=== PATIENT | male | born 1950 | race Caucasian/White ===

== ENCOUNTER 2017-12-22 20:19 | Inpatient (IN) | payer MEDICARE, OTHER ==
[2017-12-22 20:39] VITALS: BMI 24.9
[2017-12-22] MEDS ORDERED: Sodium Chloride 0.9% 1,000 ML IV STA (20:59)
[2017-12-22 21:17] LABS: BASO # 0.02 K/mm3 (0.0-2.0); BASO % 0.2 % (0.0-3.0); EOS # 0.2 (0.0-0.7); EOS % 1.5 % (1.5-5.0); GRAN # 6.6 (1.4-6.5); GRAN % 64.6 % (50.0-68.0); HEMOGLOBIN 16.2 g/dL (14.0-18.0); LYMPH # 2.8 (1.2-3.4); LYMPH % 27.4 % (22.0-35.0); MEAN CELL VOLUME 82.9 fl (80.0-105.0); MEAN CORPUSCULAR HEMOGLOBIN 28.8 pg (25.0-35.0); MEAN CORPUSCULAR HGB CONC 34.8 g/dl (31.0-37.0); MEAN PLATELET VOLUME 8.8 fl (7.0-11.0); MONO # 0.6 (0.1-0.6); MONO % 6.3 % (1.0-6.0); RBC 5.62 10^6/uL (3.5-6.1); RED CELL DISTRIBUTION WIDTH 13.5 % (11.5-14.5); WHITE BLOOD COUNT 10.2 10^3/ul (4.5-11.0)
--- NOTE | 2017-12-22 21:17 | ED PDOC ---
Arrival/HPI - General Chief Complaint: Medical Clearance Time Seen by Provider: 12/22/17 20:21 - History of Present Illness Narrative History of Present Illness (Text): 12/22/17 21:14 Patient is a 67 y/o M presenting with rectal bleeding. He reports that he felt the urge to have a bowel movement just prior to arrival and then had tyler blood per rectum. Reports that this happened 2 additional times. Denies abdominal pain. Reports that he had a colonoscopy 1 year ago that was completely negative. Denies fever, leg pain, back pain. Denies recent antibiotic use. PMD: Dr. Muhammad Past Medical History - Infectious Disease Hx of Infectious Diseases: None - Cardiac Hx Cardiac Disorders: Yes Hx Hypertension: Yes - Pulmonary Hx Respiratory Disorders: No - Neurological Hx Neurological Disorder: No - HEENT Hx HEENT Disorder: No - Renal Hx Renal Disorder: No - Endocrine/Metabolic Hx Endocrine Disorders: Yes Hx Diabetes Mellitus Type 2: Yes - Hematological/Oncological Hx Blood Disorders: No - Integumentary Hx Dermatological Disorder: No - Musculoskeletal/Rheumatological Hx Musculoskeletal Disorders: No - Gastrointestinal Hx Gastrointestinal Disorders: No - Genitourinary/Gynecological Hx Genitourinary Disorders: No - Psychiatric Hx Psychophysiologic Disorder: No Hx Substance Use: No - Anesthesia Hx Anesthesia Reactions: No (NEVER HAD BEFORE) - Suicidal Assessment Feels Threatened In Home Enviroment: No Family/Social History Family/Social History: No Known Family HX Smoking Status: Never Smoked Hx Alcohol Use: No (RED WINE ON OCCASION) Hx Substance Use: No Allergies/Home Meds Allergies/Adverse Reactions: Allergies No Known Allergies Allergy (Verified 12/22/17 21:08) Home Medications: Home Meds Medication Instructions Recorded Confirmed Sitagliptin Phos/Metformin HCl 1 each PO BID 09/16/16 12/22/17 [Janumet 50-1,000 mg Tablet] amLODIPine [Norvasc] 5 mg PO DAILY 09/16/16 12/22/17 Review of Systems - Physician Review All systems were reviewed & negative as marked: Yes - Review of Systems Constitutional: absent: Fevers Respiratory: absent: SOB, Cough, Sputum, Wheezing Cardiovascular: absent: Chest Pain, Palpitations, Edema, Calf Pain, TOM, Orthopnea, Syncope Gastrointestinal: Stool Changes (tyler blood per rectum). absent: Abdominal Pain, Constipation, Nausea, Vomiting Genitourinary Male: absent: Dysuria, Frequency, Hematuria Skin: absent: Rash Neurological: absent: Headache, Dizziness Physical Exam Vital Signs Temp Pulse Resp BP Pulse Ox 12/22/17 23:02 98.1 F 87 17 141/80 100 12/22/17 20:55 97.8 F 107 H 19 167/95 H 100 Temperature: Afebrile Blood Pressure: Normal Pulse: Tachycardic Respiratory Rate: Normal Appearance: Positive for: Well-Appearing, Non-Toxic, Comfortable Pain Distress: None Mental Status: Positive for: Alert and Oriented X 3 - Systems Exam Head: Present: Atraumatic, Normocephalic Pupils: Present: PERRL Extroacular Muscles: Present: EOMI Conjunctiva: Present: Normal Mouth: Present: Moist Mucous Membranes Neck: Present: Normal Range of Motion Respiratory/Chest: Present: Clear to Auscultation, Good Air Exchange. No: Respiratory Distress, Accessory Muscle Use Cardiovascular: Present: Normal S1, S2, Tachycardic. No: Murmurs Abdomen: No: Tenderness, Distention, Rebound, Guarding Rectal: Present: Occult Blood, Gross Blood, Fissures (small posterior linear fissure) Upper Extremity: Present: Normal Inspection Lower Extremity: Present: Normal Inspection Neurological: Present: GCS=15, CN II-XII Intact, Motor Func Grossly Intact, Normal Sensory Function Skin: Present: Warm, Dry. No: Rashes Psychiatric: Present: Alert, Oriented x 3 Medical Decision Making ED Course and Treatment: 12/22/17 22:20 Patient has gross blood per rectum. Tachycardic on arrival. Episodes were just prior to arrival. Hgb WNL, but due to onset of symptoms, recent negative colonoscopy and presenting tachycardia, will need observation for serial hemoglobin - Lab Interpretations Lab Results: 12/23/17 03:00 12/23/17 03:00 Lab Results 12/23/17 07:25: POC Glucose (mg/dL) 160 H 12/23/17 03:00: Sodium 135, Potassium 4.2, Chloride 102, Carbon Dioxide 26, Anion Gap 11, BUN 19, Creatinine 1.0, Est GFR ( Amer) > 60, Est GFR (Non- Af Amer) > 60, Random Glucose 230 H, Calcium 8.1 L, Total Bilirubin 0.4, AST 28 , ALT 48, Alkaline Phosphatase 55, Total Protein 5.2 L, Albumin 2.9 L, Globulin 2.3, Albumin/Globulin Ratio 1.3 12/23/17 03:00: PT 12.5, INR 1.09 H, APTT 27.1 12/23/17 03:00: WBC 5.3 D, RBC 4.11, Hgb 11.6 L D, Hct 33.8 L, MCV 82.2, MCH 28.2, MCHC 34.3, RDW 13.6, Plt Count 147, MPV 8.4, Gran % 63.1, Lymph % (Auto) 26.1, Summers % (Auto) 9.5 H, Eos % (Auto) 1.1 L, Baso % (Auto) 0.2, Gran # 3.33, Lymph # (Auto) 1.4, Summers # (Auto) 0.5, Eos # (Auto) 0.1, Baso # (Auto) 0.01 12/23/17 03:00: Blood Type Confirm B POSITIVE 12/22/17 21:11: Blood Type B POSITIVE, Antibody Screen Negative, BBK History Checked No verified bt 12/22/17 21:02: Triglycerides 149, Cholesterol 133, LDL Cholesterol Direct 82, HDL Cholesterol 38 12/22/17 21:02: Sodium 135, Potassium 3.8, Chloride 94 L, Carbon Dioxide 26, Anion Gap 19, BUN 20, Creatinine 0.9, Est GFR ( Amer) > 60, Est GFR (Non- Af Amer) > 60, Random Glucose 291 H, Calcium 9.7, Total Bilirubin 0.9, AST 43, ALT 58 H, Alkaline Phosphatase 127 H, Total Protein 7.6, Albumin 4.5, Globulin 3.1, Albumin/Globulin Ratio 1.5 12/22/17 21:02: PT 11.4, INR 1.00, APTT 30.2 12/22/17 21:02: WBC 10.2 D, RBC 5.62, Hgb 16.2, Hct 46.6, MCV 82.9, MCH 28.8, MCHC 34.8, RDW 13.5, Plt Count 186, MPV 8.8, Gran % 64.6, Lymph % (Auto) 27.4, Summers % (Auto) 6.3 H, Eos % (Auto) 1.5, Baso % (Auto) 0.2, Gran # 6.60 H, Lymph # (Auto) 2.8, Summers # (Auto) 0.6, Eos # (Auto) 0.2, Baso # (Auto) 0.02 - RAD Interpretation Radiology Orders: 12/22/17 21:18 CHEST PORTABLE [RAD] Stat - Medication Orders Current Medication Orders: Amlodipine Besylate (Norvasc) 5 mg PO DAILY [facility] Last Admin: 12/23/17 09:21 Dose: 5 mg MAR Pulse and Blood Pressure Document 12/23/17 09:21 VALDEZ (Rec: 12/23/17 09:22 VALDEZ [id number] Pulse Pulse Rate (60-90) 72 Blood Pressure Blood Pressure (100/60-150/90) 129/78 Sodium Chloride (Sodium Chloride 0.9%) 1,000 mls @ 100 mls/hr IV .Q10H KT Last Admin: 12/22/17 22:44 Dose: 100 mls/hr eMAR Start Stop Document 12/22/17 22:44 IT (Rec: 12/22/17 22:45 IT [id number]) Intravenous Solution Start Date 12/22/17 Start Time 22:44 Insulin Human Regular (Humulin R Med) 0 units SC ACHS [facility] PRN Reason: Protocol Last Admin: 12/23/17 08:05 Dose: Not Given Non-Admin Reason: Patient Refused MAR Blood Glucose Document 12/23/17 08:05 VALDEZ (Rec: 12/23/17 08:06 VALDEZ [id number] Blood Glucose Finger Stick Blood Glucose (70-120) 160 Subcutaneous Administrations Document 12/23/17 08:05 VALDEZ (Rec: 12/23/17 08:06 VALDEZ [id number]) Injection Site MAR Injection Site Right Arm Charges for Administration # of Subcutaneous Administrations 1 Pantoprazole Sodium (Protonix Ec Tab) 40 mg PO 0600 KT Discontinued Medications Sodium Chloride (Sodium Chloride 0.9%) 1,000 mls @ 999 mls/hr IV .Q1H1M STA Stop: 12/22/17 21:59 Last Admin: 12/22/17 21:17 Dose: 999 mls/hr eMAR Start Stop Document 12/22/17 21:17 IT (Rec: 12/22/17 21:17 IT [facility] [id number]) Intravenous Solution Start Date 12/22/17 Start Time 21:17 End Date 12/22/17 End time 22:17 Total Infusion Time 60 Pantoprazole Sodium (Protonix Inj) 40 mg IVP Q12 KT Last Admin: 12/22/17 22:44 Dose: 40 mg IVP Administration Document 12/22/17 22:44 IT (Rec: 12/22/17 22:44 IT [id number]) Charges for Administration # of IVP Administrations 1 Disposition/Present on Arrival - Present on Arrival Any Indicators Present on Arrival: No History of DVT/PE: No History of Uncontrolled Diabetes: No Urinary Catheter: No History of Decub. Ulcer: No History Surgical Site Infection Following: None - Disposition Have Diagnosis and Disposition been Completed?: Yes Diagnosis: Rectal bleeding Disposition: HOSPITALIZED Disposition Time: 22:21 Patient Plan: Observation Patient Problems: Current Active Problems Problem Status Onset Rectal bleeding Acute Condition: FAIR
[2017-12-22 21:23] LABS: ALB/GLOB RATIO 1.5 (1.1-1.8); ALBUMIN 4.5 g/dL (3.0-4.8); ALT/SGPT 58 U/L (7-56); AST/SGOT 43 U/L (17-59); BLOOD UREA NITROGEN 20 mg/dL (7-21); CALCIUM 9.7 mg/dL (8.4-10.5); GFR AFRICAN-AMERICAN > 60; GFR NON-AFRICAN AMERICAN > 60
[2017-12-22 22:02] LABS: PARTIAL THROMBOPLASTIN TIME 30.2 Seconds (25.1-36.5); PROTHROMBIN TIME 11.4 SECONDS (9.4-12.5)
[2017-12-22] MEDS: Sodium Chloride 0.9% 1,000 ML IV SCH (22:44)
[2017-12-22 22:48] LABS: HDL CHOLESTEROL 38 mg/dL (29-60)
--- NOTE | 2017-12-22 22:55 | CP.PCM.HP ---
History of Present Illness - History of Present Illness History of Present Illness: Janet Chand, PGY1, H&P for Dr Anderson: CC: rectal bleeding 67 year old male with PMH DM2, HTN, HLD, presents for rectal bleeding that started 6 hours TACKER OFF. At 5:30 PM, pt started having a soft formed bowel movement mixed with bright red blood, pt had blood on the toilet tissue when wiped. He then had two more episodes of passing liquid stools, BRBPR, which prompted him to come to ED. He denies previous such episodes. Pt had a prior colonoscopy in 09/2016, which showed diverticulosis in entire colon and non bleeding internal hemorrhoids. Denies fever, chills, nausea, vomiting, hematemesis, weakness, cp, sob, abdominal pain, diarrhea, history of constipation, hematuria, urinary symptoms, leg swelling. Denies heavy NSAID use, recent travel/sick contacts, antibiotic use. No previous EGD. In ED, pt afebrile, tachycardic 107, BP 167/95, saturating well on RA. Hgb stable 16.2. Received 1L NS bolus. Last rectal bleeding episode at 8 PM in ED. 12 point ROS obtained and negative, except as per HPI. 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 Denies alcohol/tobacco/drug use. Home Meds: ASA 81, Norvasc 5 mg daily, Janumet 1 tab PO BID Present on Admission - Present on Admission Any Indicators Present on Admission: No History of DVT/PE: No History of Uncontrolled Diabetes: No Urinary Catheter: No Decubitus Ulcer Present: No Review of Systems - Review of Systems All systems: reviewed and no additional remarkable complaints except Review of Systems: as per HPI Past Patient History - Infectious Disease Hx of Infectious Diseases: None - Past Social History Smoking Status: Never Smoked - CARDIAC Hx Cardiac Disorders: Yes Hx Hypertension: Yes - PULMONARY Hx Respiratory Disorders: No - NEUROLOGICAL Hx Neurological Disorder: No - HEENT Hx HEENT Problems: No - RENAL Hx Chronic Kidney Disease: No - ENDOCRINE/METABOLIC Hx Endocrine Disorders: Yes Hx Diabetes Mellitus Type 2: Yes - HEMATOLOGICAL/ONCOLOGICAL Hx Blood Disorders: No - INTEGUMENTARY Hx Dermatological Problems: No - MUSCULOSKELETAL/RHEUMATOLOGICAL Hx Musculoskeletal Disorders: No - GASTROINTESTINAL Hx Gastrointestinal Disorders: No - GENITOURINARY/GYNECOLOGICAL Hx Genitourinary Disorders: No - PSYCHIATRIC Hx Psychophysiologic Disorder: No Hx Substance Use: No - SURGICAL HISTORY Hx Surgeries: No - ANESTHESIA Hx Anesthesia Reactions: No (NEVER HAD BEFORE) Meds Allergies/Adverse Reactions: Allergies Allergy/AdvReac Type Severity Reaction Status Date / Time No Known Allergies Allergy Verified 12/22/17 21:08 Physical Exam - Constitutional Appears: Non-toxic, No Acute Distress, Older Than Stated Age - Head Exam Head Exam: ATRAUMATIC, NORMOCEPHALIC - Eye Exam Eye Exam: EOMI, PERRL. absent: Conjunctival injection, Nystagmus, Scleral icterus Pupil Exam: NORMAL ACCOMODATION, PERRL. absent: Fixed, Irregular, Miosis, Unequal - ENT Exam ENT Exam: Mucous Membranes Moist - Neck Exam Neck exam: Positive for: Full Rom - Respiratory Exam Respiratory Exam: Clear to Auscultation Bilateral, NORMAL BREATHING PATTERN. absent: Accessory Muscle Use, Chest Wall Tenderness, Decreased Breath Sounds, Rales, Rhonchi, Wheezes, Respiratory Distress, Stridor - Cardiovascular Exam Cardiovascular Exam: Tachycardia, +S1, +S2 - GI/Abdominal Exam GI & Abdominal Exam: Normal Bowel Sounds, Soft. absent: Distended, Guarding, Mass, Organomegaly, Rebound, Rigid, Tenderness - Rectal Exam Rectal Exam: absent: Fecal Impaction Additional comments: + increased anal tone. No hemorrhoids appreciated. No stool in rectal vault. + bright red blood. - Expanded Rectal Exam Expanded Expanded Rectal Exam: absent: Hemorrhoids, Laceration, Mass - Extremities Exam Extremities exam: Positive for: normal inspection. Negative for: calf tenderness, pedal edema - Back Exam Back exam: NORMAL INSPECTION - Neurological Exam Neurological exam: Alert, Oriented x3 - Psychiatric Exam Psychiatric exam: Normal Affect, Normal Mood - Skin Skin Exam: Dry, Normal Color, Warm Results - Vital Signs Recent Vital Signs: Last Vital Signs Temp 97.8 F 12/22/17 20:55 Pulse 107 H 12/22/17 20:55 Resp 19 12/22/17 20:55 BP 167/95 H 12/22/17 20:55 Pulse Ox 100 12/22/17 20:55 - Labs Result Diagrams: 12/22/17 21:02 12/22/17 21:02 Assessment & Plan - Assessment and Plan (Free Text) Assessment: 67 year old male with PMH DM2, HTN, HLD, presents for acute episode of rectal bleeding: Rectal bleedin/2 diverticular vs anal fissure vs internal hemorrhoidal bleeding vs IBD (less likely) - Hgb 16.2 (baseline 16) - Tachycardic 107, NSR, no hypotension, weakness, sob, cp - NPO - IVF @ 100 - GI consult. F/u recs - Type and screen - Protonix - CBC q6h Hx of HTN: - c/w home amlodipine - Cont to monitor Hx of HLD: - lipid panel - no home statin reported Hx of DM2: - ISS - med PPX: Protonix, SCDs (anticoag contraindicated) Discussed with Dr Anderson.
[2017-12-22 22:59] LABS: LDL CHOLESTEROL 82 mg/dL (0-129)
[2017-12-23 03:41] LABS: MEAN CELL VOLUME 82.2 fl (80.0-105.0); MEAN CORPUSCULAR HEMOGLOBIN 28.2 pg (25.0-35.0); MEAN CORPUSCULAR HGB CONC 34.3 g/dl (31.0-37.0); MEAN PLATELET VOLUME 8.4 fl (7.0-11.0); RBC 4.11 10^6/uL (3.5-6.1); RED CELL DISTRIBUTION WIDTH 13.6 % (11.5-14.5); WHITE BLOOD COUNT 5.3 10^3/ul (4.5-11.0)
[2017-12-23 03:45] LABS: HEMOGLOBIN 11.6 g/dL (14.0-18.0); INR 1.09 (0.93-1.08); PARTIAL THROMBOPLASTIN TIME 27.1 Seconds (25.1-36.5); PROTHROMBIN TIME 12.5 SECONDS (9.4-12.5)
[2017-12-23 04:15] LABS: ALB/GLOB RATIO 1.3 (1.1-1.8); ALBUMIN 2.9 g/dL (3.0-4.8); ALT/SGPT 48 U/L (7-56); AST/SGOT 28 U/L (17-59); BLOOD UREA NITROGEN 19 mg/dL (7-21); CALCIUM 8.1 mg/dL (8.4-10.5); GFR AFRICAN-AMERICAN > 60; GFR NON-AFRICAN AMERICAN > 60
[2017-12-23 04:20] LABS: BASO % 0.2 % (0.0-3.0); EOS % 1.1 % (1.5-5.0); GRAN # 3.33 (1.4-6.5); GRAN % 63.1 % (50.0-68.0); LYMPH # 1.4 (1.2-3.4); LYMPH % 26.1 % (22.0-35.0); MONO # 0.5 (0.1-0.6); MONO % 9.5 % (1.0-6.0)
[2017-12-23 04:21] LABS: BASO # 0.01 K/mm3 (0.0-2.0); EOS # 0.1 (0.0-0.7)
--- NOTE | 2017-12-23 07:55 | CP.PCM.CON ---
<Joycelyn Gilliland - Last Filed: 12/23/17 08:56> History of Present Illness - History of Present Illness History of Present Illness: GI Fellow PGY4 Consult Note This is a 67 year old male with PMH DM2, HTN, HLD, presents for rectal bleeding that started yesterday afternoon. Pt reports that he has two bowel movements with bright red blood followed by two more episodes of passing soft stools with dark blood. He denies previous such episodes. Pt had a prior colonoscopy in 2015, which showed diverticulosis in entire colon and non bleeding internal hemorrhoids. Denies fever, chills, nausea, vomiting, hematemesis, weakness, cp, sob, abdominal pain, diarrhea, history of constipation, hematuria, urinary symptoms, leg swelling. Denies heavy NSAID use, recent travel/sick contacts, antibiotic use. Pt denies constipation or straining, reports BM 2-3 daily. No previous EGD. Pt reports having 2 more episode of dark blood per rectum last night in the hospital. ROS: 12 point ROS obtained and negative, except as per HPI. PMH: DM2, HTN, HLD PSH: denies FH: DM, HTN SH: Denies alcohol/tobacco/drug use Past Patient History - Infectious Disease Hx of Infectious Diseases: None - Past Social History Smoking Status: Former Smoker - CARDIAC Hx Cardiac Disorders: Yes Hx Hypertension: Yes - PULMONARY Hx Respiratory Disorders: No - NEUROLOGICAL Hx Neurological Disorder: No - HEENT Hx HEENT Problems: No - RENAL Hx Chronic Kidney Disease: No - ENDOCRINE/METABOLIC Hx Endocrine Disorders: Yes Hx Diabetes Mellitus Type 2: Yes - HEMATOLOGICAL/ONCOLOGICAL Hx Blood Disorders: No - INTEGUMENTARY Hx Dermatological Problems: No - MUSCULOSKELETAL/RHEUMATOLOGICAL Hx Musculoskeletal Disorders: No Hx Falls: No - GASTROINTESTINAL Hx Gastrointestinal Disorders: No - GENITOURINARY/GYNECOLOGICAL Hx Genitourinary Disorders: No - PSYCHIATRIC Hx Psychophysiologic Disorder: No Hx Substance Use: No - SURGICAL HISTORY Hx Surgeries: No - ANESTHESIA Hx Anesthesia Reactions: No (NEVER HAD BEFORE) Meds Allergies/Adverse Reactions: Allergies Allergy/AdvReac Type Severity Reaction Status Date / Time No Known Allergies Allergy Verified 12/22/17 21:08 - Medications Medications: Current Medications Amlodipine Besylate (Norvasc) 5 mg PO DAILY KT Sodium Chloride (Sodium Chloride 0.9%) 1,000 mls @ 100 mls/hr IV .Q10H KT Last Admin: 12/22/17 22:44 Dose: 100 mls/hr Insulin Human Regular (Humulin R Med) 0 units SC ACHS [facility] PRN Reason: Protocol Pantoprazole Sodium (Protonix Inj) 40 mg IVP Q12 [facility] Last Admin: 12/22/17 22:44 Dose: 40 mg Physical Exam - Constitutional Appears: Non-toxic, No Acute Distress - Head Exam Head Exam: ATRAUMATIC, NORMAL INSPECTION, NORMOCEPHALIC - Eye Exam Eye Exam: EOMI, Normal appearance, PERRL Pupil Exam: PERRL - ENT Exam ENT Exam: Mucous Membranes Moist - Neck Exam Neck exam: Positive for: Normal Inspection - Respiratory Exam Respiratory Exam: Clear to Auscultation Bilateral, NORMAL BREATHING PATTERN - Cardiovascular Exam Cardiovascular Exam: REGULAR RHYTHM - GI/Abdominal Exam GI & Abdominal Exam: Normal Bowel Sounds, Soft. absent: Distended, Firm, Guarding, Organomegaly, Tenderness - Rectal Exam Rectal Exam: absent: Black Stool, Hemorrhoids Additional comments: brown stool with tinge of red, no gross hematochezia or melena - Extremities Exam Extremities exam: Positive for: full ROM, normal inspection - Back Exam Back exam: NORMAL INSPECTION - Neurological Exam Neurological exam: Alert, Oriented x3 - Psychiatric Exam Psychiatric exam: Normal Affect, Normal Mood - Skin Skin Exam: Dry, Intact, Normal Color, Warm Results - Vital Signs Recent Vital Signs: Last Vital Signs Temp 98.6 F 12/23/17 01:17 Pulse 88 12/23/17 01:17 Resp 18 12/23/17 01:17 BP 124/75 12/23/17 01:17 Pulse Ox 100 12/22/17 23:02 - Labs Result Diagrams: 12/23/17 08:30 12/23/17 03:00 Labs: Laboratory Results - last 24 hr 12/23/17 12/23/17 12/23/17 03:00 03:00 03:00 WBC 5.3 D RBC 4.11 Hgb 11.6 L D Hct 33.8 L MCV 82.2 MCH 28.2 MCHC 34.3 RDW 13.6 Plt Count 147 MPV 8.4 Gran % 63.1 Lymph % (Auto) 26.1 Mason % (Auto) 9.5 H Eos % (Auto) 1.1 L Baso % (Auto) 0.2 Gran # 3.33 Lymph # (Auto) 1.4 Mason # (Auto) 0.5 Eos # (Auto) 0.1 Baso # (Auto) 0.01 PT 12.5 INR 1.09 H APTT 27.1 Sodium Potassium Chloride Carbon Dioxide Anion Gap BUN Creatinine Est GFR ( Amer) Est GFR (Non-Af Amer) POC Glucose (mg/dL) Random Glucose Calcium Total Bilirubin AST ALT Alkaline Phosphatase Total Protein Albumin Globulin Albumin/Globulin Ratio Blood Type Confirm B POSITIVE 12/23/17 12/23/17 03:00 07:25 WBC RBC Hgb Hct MCV MCH MCHC RDW Plt Count MPV Gran % Lymph % (Auto) Mason % (Auto) Eos % (Auto) Baso % (Auto) Gran # Lymph # (Auto) Mason # (Auto) Eos # (Auto) Baso # (Auto) PT INR APTT Sodium 135 Potassium 4.2 Chloride 102 Carbon Dioxide 26 Anion Gap 11 BUN 19 Creatinine 1.0 Est GFR ( Amer) > 60 Est GFR (Non-Af Amer) > 60 POC Glucose (mg/dL) 160 H Random Glucose 230 H Calcium 8.1 L Total Bilirubin 0.4 AST 28 ALT 48 Alkaline Phosphatase 55 Total Protein 5.2 L Albumin 2.9 L Globulin 2.3 Albumin/Globulin Ratio 1.3 Blood Type Confirm Assessment & Plan - Assessment and Plan (Free Text) Assessment: This is a 67yM presenting with complaints of BRBPR since yesterday. 1. Rectal bleeding-likely diverticular bleed 2. Anemia Plan: -Continue supportive care -IVF hydration -Pt with slowly improving rectal bleeding, likely diverticular bleed with colonoscopy in 2016 showing diverticulosis throughout the colon -Anemia with Hgb 16.2-->11.6, continue to monitor H/H and transfuse if Hgb<7 or symptomatic, currently pt hemodynamically stable -Advance diet to clear liquids -No plan for endoscopic evaluation at this time -Can change to po PPI for GERD, no signs of upper GI bleed -Will continue to follow closely <Sean Peterson - Last Filed: 12/23/17 14:50> Meds - Medications Medications: Current Medications Amlodipine Besylate (Norvasc) 5 mg PO DAILY KT Sodium Chloride (Sodium Chloride 0.9%) 1,000 mls @ 100 mls/hr IV .Q10H KT Last Admin: 12/23/17 12:13 Dose: 100 mls/hr Insulin Human Regular (Humulin R Med) 0 units SC ACHS [facility] PRN Reason: Protocol Last Admin: 12/23/17 12:17 Dose: 3 units Pantoprazole Sodium (Protonix Ec Tab) 40 mg PO 0600 [facility] Results - Vital Signs Recent Vital Signs: Last Vital Signs Temp 98.0 F 12/23/17 07:30 Pulse 72 12/23/17 09:21 Resp 16 12/23/17 07:30 BP 129/78 12/23/17 09:21 Pulse Ox 96 12/23/17 07:30 - Labs Result Diagrams: 12/23/17 08:30 12/23/17 03:00 Labs: Laboratory Results - last 24 hr 12/23/17 12/23/17 08:30 11:37 WBC 4.6 RBC 4.19 Hgb 11.7 L Hct 34.5 L MCV 82.3 MCH 27.9 MCHC 33.9 RDW 13.7 Plt Count 161 MPV 8.5 POC Glucose (mg/dL) 206 H Attending/Attestation - Attestation I have personally seen and examined this patient.: Yes I have fully participated in the care of the patient.: Yes I have reviewed all pertinent clinical information: Yes Notes (Text): 12/23/17 14:46 I have seen and examined patient with GI fellow. Agree with above documentation with the following additions. In brief, this is a 67 year old male with history of DM, HTN, hyperlipidemia who presents to hospital with complaint of rectal bleeding which started yesterday. He reports two dark colored bowel movements mixed with fresh blood in the evening but no repeat bowel movements since. He denies associated abdominal pain, nausea, vomiting, fever/chills, weight loss. He had a colonoscopy in 2016 which showed diverticulosis and internal hemorrhoids. Review of vitals from today are normal. DM / HTN Hyperlipidemia Rectal bleeding - Advance diet as tolerated - H/H stable, continue to monitor. No recurrent bleeding episodes noted in hospital today. - Patient currently hemodynamically stable, if no repeat bleeding noted and patient tolerating diet, from GI perspective ok to discharge home with subsequent outpatient follow up. - Will continue to monitor patient clinical course.
[2017-12-23] MEDS: Insulin Reg-MEDIUM-Coverage SC SCH ×4 (08:05→21:45)
[2017-12-23 08:52] LABS: HEMOGLOBIN 11.7 g/dL (14.0-18.0); MEAN CELL VOLUME 82.3 fl (80.0-105.0); MEAN CORPUSCULAR HEMOGLOBIN 27.9 pg (25.0-35.0); MEAN CORPUSCULAR HGB CONC 33.9 g/dl (31.0-37.0); MEAN PLATELET VOLUME 8.5 fl (7.0-11.0); RBC 4.19 10^6/uL (3.5-6.1); RED CELL DISTRIBUTION WIDTH 13.7 % (11.5-14.5); WHITE BLOOD COUNT 4.6 10^3/ul (4.5-11.0)
--- NOTE | 2017-12-23 09:45 | RAD ---
HISTORY: GI bleed COMPARISON: No prior. FINDINGS: LUNGS: No active pulmonary disease. PLEURA: No significant pleural effusion identified, no pneumothorax apparent. CARDIOVASCULAR: Normal. OSSEOUS STRUCTURES: No significant abnormalities. VISUALIZED UPPER ABDOMEN: Normal. OTHER FINDINGS: None. IMPRESSION: No active disease.
[2017-12-23] MEDS: Sodium Chloride 0.9% 1,000 ML IV SCH (12:13)
[2017-12-23 15:34] LABS: HEMOGLOBIN 10.4 g/dL (14.0-18.0); MEAN CORPUSCULAR HEMOGLOBIN 28.1 pg (25.0-35.0); MEAN CORPUSCULAR HGB CONC 33.9 g/dl (31.0-37.0); MEAN PLATELET VOLUME 8.1 fl (7.0-11.0); RBC 3.7 10^6/uL (3.5-6.1); RED CELL DISTRIBUTION WIDTH 13.7 % (11.5-14.5); WHITE BLOOD COUNT 4.1 10^3/ul (4.5-11.0)
--- NOTE | 2017-12-23 17:36 | CARD ---
APPROVED REPORT EKG Measurement Heart [id number] <Conclusion> Normal sinus rhythm Inferior infarct, age undetermined Abnormal ECG
[2017-12-23 21:14] LABS: HEMOGLOBIN 10.5 g/dL (14.0-18.0); MEAN CORPUSCULAR HEMOGLOBIN 27.9 pg (25.0-35.0); MEAN CORPUSCULAR HGB CONC 33.5 g/dl (31.0-37.0); RBC 3.77 10^6/uL (3.5-6.1); RED CELL DISTRIBUTION WIDTH 13.9 % (11.5-14.5); WHITE BLOOD COUNT 4.4 10^3/ul (4.5-11.0)
[2017-12-24] MEDS: Sodium Chloride 0.9% 1,000 ML IV SCH (05:25)
[2017-12-24] MEDS ORDERED: Pantoprazole 40 mg EC Tab PO SCH (06:00)
--- NOTE | 2017-12-24 07:08 | CP.PCM.PN ---
Subjective - Date & Time of Evaluation Date of Evaluation: 12/24/17 Time of Evaluation: 08:00 - Subjective Subjective: GI Fellow PGY 4 Progress Note Pt seen and evaluated at bedside, pt doing well and tolerating diet. Pt denies any abdominal pain, N/V, F/C. No more rectal bleeding per pt, dark brown stool. ROS: A 12pt ROS was negative except as above. Objective - Vital Signs/Intake and Output Vital Signs (last 24 hours): Temp Pulse Resp BP Pulse Ox 97.9 F 68 20 112/69 98 12/23/17 21:52 12/23/17 21:52 12/23/17 21:52 12/23/17 21:52 12/23/17 21:52 Intake and Output: 12/24/17 12/24/17 06:59 18:59 Intake Total 480 Output Total 700 Balance -220 - Medications Medications: Current Medications Amlodipine Besylate (Norvasc) [address] [facility] Insulin Human Regular (Humulin R Med) 0 units SC ACHS KT PRN Reason: Protocol Last Admin: 12/23/17 21:45 Dose: Not Given Pantoprazole Sodium (Protonix Ec Tab) [address] [facility] Last Admin: 12/24/17 05:25 Dose: Not Given - Labs Labs: 12/23/17 20:55 PT 12.5 SECONDS (9.4-12.5) 12/23/17 03:00 INR 1.09 (0.93-1.08) H 12/23/17 03:00 APTT 27.1 Seconds (25.1-36.5) 12/23/17 03:00 - Constitutional Appears: Non-toxic, No Acute Distress - Head Exam Head Exam: ATRAUMATIC, NORMAL INSPECTION, NORMOCEPHALIC - Eye Exam Eye Exam: EOMI, Normal appearance, PERRL Pupil Exam: PERRL - ENT Exam ENT Exam: Mucous Membranes Moist, Normal Exam - Neck Exam Neck Exam: Normal Inspection - Respiratory Exam Respiratory Exam: Clear to Ausculation Bilateral, NORMAL BREATHING PATTERN - GI/Abdominal Exam GI & Abdominal Exam: Soft, Normal Bowel Sounds - Extremities Exam Extremities Exam: Full ROM, Normal Inspection - Back Exam Back Exam: NORMAL INSPECTION - Neurological Exam Neurological Exam: Alert, Awake, Oriented x3 - Psychiatric Exam Psychiatric exam: Normal Affect, Normal Mood - Skin Skin Exam: Dry, Intact, Normal Color, Warm Assessment and Plan - Assessment and Plan (Free Text) Assessment: This is a 67yM presenting with complaints of BRBPR since yesterday. 1. Rectal bleeding-likely diverticular bleed 2. Anemia Plan: -Continue supportive care -Pt with likely diverticular bleed with colonoscopy in 2016 showing diverticulosis throughout the colon -Anemia Hgb trending down, continue to monitor H/H daily, no need for q6hrs and transfuse if Hgb<7 or symptomatic, currently pt hemodynamically stable -Advance diet -Continue po PPI for GERD -No plan for endoscopic evaluation at this time, follow up as an outpt for colonoscopy -Please call with any questions or concerns
[2017-12-24 07:17] LABS: HEMOGLOBIN 11.5 g/dL (14.0-18.0); MEAN CELL VOLUME 83.4 fl (80.0-105.0); MEAN CORPUSCULAR HEMOGLOBIN 28.1 pg (25.0-35.0); MEAN CORPUSCULAR HGB CONC 33.7 g/dl (31.0-37.0); MEAN PLATELET VOLUME 8.3 fl (7.0-11.0); RBC 4.09 10^6/uL (3.5-6.1); WHITE BLOOD COUNT 5.3 10^3/ul (4.5-11.0)
[2017-12-24 07:26] VITALS: BP 109/62; PULSE 64; RESP 18; TEMP 99.8; O2SAT 97
[2017-12-24 07:27] LABS: INR 1.03 (0.93-1.08); PARTIAL THROMBOPLASTIN TIME 27.8 Seconds (25.1-36.5); PROTHROMBIN TIME 11.9 SECONDS (9.4-12.5)
[2017-12-24 08:03] LABS: ALB/GLOB RATIO 1.3 (1.1-1.8); ALBUMIN 3.4 g/dL (3.0-4.8); ALT/SGPT 47 U/L (7-56); AST/SGOT 38 U/L (17-59); BLOOD UREA NITROGEN 11 mg/dL (7-21); CALCIUM 8.5 mg/dL (8.4-10.5); GFR AFRICAN-AMERICAN > 60; GFR NON-AFRICAN AMERICAN > 60
[2017-12-24] MEDS: Insulin Reg-MEDIUM-Coverage SC SCH (10:28)
--- NOTE | 2017-12-24 11:08 | CP.PCM.DIS ---
<Alexi Rose - Last Filed: 12/24/17 11:53> Provider - Provider Date of Admission: 12/23/17 07:40 Attending physician: Alexei Rawls MD Primary care physician: Pito Muhammad MD Consults: GI: Larsen Time Spent in preparation of Discharge (in minutes): 25 Diagnosis - Discharge Diagnosis (1) Diverticulosis Status: Chronic Priority: Medium (2) Rectal bleeding Status: Resolved Priority: High (3) Anemia Status: Acute Priority: High Hospital Course - Lab Results Lab Results: Most Recent Lab Values WBC 5.3 10^3/ul (4.5-11.0) D 12/24/17 07:00 RBC 4.09 10^6/uL (3.5-6.1) 12/24/17 07:00 Hgb 11.5 g/dL (14.0-18.0) L 12/24/17 07:00 Hct 34.1 % (42.0-52.0) L 12/24/17 07:00 MCV 83.4 fl (80.0-105.0) 12/24/17 07:00 MCH 28.1 pg (25.0-35.0) 12/24/17 07:00 MCHC 33.7 g/dl (31.0-37.0) 12/24/17 07:00 RDW 14.0 % (11.5-14.5) 12/24/17 07:00 Plt Count 132 10^3/uL (120.0-450.0) 12/24/17 07:00 MPV 8.3 fl (7.0-11.0) 12/24/17 07:00 Gran % 63.1 % (50.0-68.0) 12/23/17 03:00 Lymph % (Auto) 26.1 % (22.0-35.0) 12/23/17 03:00 Latimer % (Auto) 9.5 % (1.0-6.0) H 12/23/17 03:00 Eos % (Auto) 1.1 % (1.5-5.0) L 12/23/17 03:00 Baso % (Auto) 0.2 % (0.0-3.0) 12/23/17 03:00 Gran # 3.33 (1.4-6.5) 12/23/17 03:00 Lymph # (Auto) 1.4 (1.2-3.4) 12/23/17 03:00 Latimer # (Auto) 0.5 (0.1-0.6) 12/23/17 03:00 Eos # (Auto) 0.1 (0.0-0.7) 12/23/17 03:00 Baso # (Auto) 0.01 K/mm3 (0.0-2.0) 12/23/17 03:00 PT 11.9 SECONDS (9.4-12.5) 12/24/17 07:00 INR 1.03 (0.93-1.08) 12/24/17 07:00 APTT 27.8 Seconds (25.1-36.5) 12/24/17 07:00 Sodium 140 mmol/L (132-148) 12/24/17 07:00 Potassium 4.0 mmol/L (3.6-5.0) 12/24/17 07:00 Chloride 107 mmol/L (98-107) 12/24/17 07:00 Carbon Dioxide 27 mmol/L (21-33) 12/24/17 07:00 Anion Gap 10 (10-20) 12/24/17 07:00 BUN 11 mg/dL (7-21) 12/24/17 07:00 Creatinine 0.8 mg/dl (0.8-1.5) 12/24/17 07:00 Est GFR ( Amer) > 60 12/24/17 07:00 Est GFR (Non-Af Amer) > 60 12/24/17 07:00 POC Glucose (mg/dL) 312 mg/dL (65-110) H 12/24/17 09:11 Random Glucose 166 mg/dL (70-110) H 12/24/17 07:00 Calcium 8.5 mg/dL (8.4-10.5) 12/24/17 07:00 Total Bilirubin 0.5 mg/dL (0.2-1.3) 12/24/17 07:00 AST 38 U/L (17-59) 12/24/17 07:00 ALT 47 U/L (7-56) 12/24/17 07:00 Alkaline Phosphatase 43 U/L (38-126) 12/24/17 07:00 Total Protein 6.0 g/dL (5.8-8.3) 12/24/17 07:00 Albumin 3.4 g/dL (3.0-4.8) 12/24/17 07:00 Globulin 2.6 gm/dL 12/24/17 07:00 Albumin/Globulin Ratio 1.3 (1.1-1.8) 12/24/17 07:00 Triglycerides 149 mg/dL (35-160) 12/22/17 21:02 Cholesterol 133 mg/dL (130-200) 12/22/17 21:02 LDL Cholesterol Direct 82 mg/dL (0-129) 12/22/17 21: HDL Cholesterol 38 mg/dL (29-60) 12/22/17 21:02 Blood Type B POSITIVE 12/22/17 21:11 Blood Type Confirm B POSITIVE 12/23/17 03:00 Antibody Screen Negative 12/22/17 21:11 BBK History Checked No verified bt 12/22/17 21:11 - Hospital Course Hospital Course: This is a 67 yo [place] M with PMH of DM2, HTN, HLD who presented for 3 acute episodes of rectal bleeding prior to presentation to [facility] [place]. Of note, he had previous undergone colonoscopy at [facility] [place] in Sep 2016, and was noted to have extensive diverticulosis of the colon and internal hemorrhoids at that time. He denied any history of similar GI bleeds, but was admitted for observation given reported bleeding and tachycardia on presentation. While here, he was also seen by GI, who believed that the bleeding was most likely due to the diverticulosis, and did not recommend additional scoping at this time. Patient was transitioned first to a liquid diet, and then to solid food. His Hgb during admission decreased from 16.2 (baseline at time of colonoscopy as well as present on admission) to 11.6 yesterday, and has ranged from 10.4-11.7 since yesterday AM to this morning, but there is likely a dilutional component, as patient was receiving continuous IV fluids since admission (and a 1L bolus on admission), did not have any further bloody bowel movements, and remained normotensive and normocardic since admission. He was ambulated by staff, and was able to walk without any weakness, dizziness, near-syncope, or syncope. He was cleared for discharge to home, and was given a prescription for Colace 100mg daily to prevent constipation in setting of diverticular disease. He was also instructed to follow up with his PMD within 1 week of discharge, and to resume all home medications. Patient expressed understanding and agreement with these instructions, and had no further questions, so he was discharged. Patient seen, reviewed, and discussed with attending, Dr. Rawls. Discharge Exam - Head Exam Head Exam: ATRAUMATIC, NORMAL INSPECTION, NORMOCEPHALIC - Eye Exam Eye Exam: EOMI, Normal appearance. absent: Conjunctival injection, Scleral icterus Pupil Exam: absent: Irregular, Unequal - ENT Exam ENT Exam: Mucous Membranes Moist - Neck Exam Neck exam: Full Rom - Respiratory Exam Respiratory Exam: Clear to PA & Lateral, NORMAL BREATHING PATTERN, UNREMARKABLE. absent: Prolonged Expiratory Phase, Rales, Rhonchi, Wheezes, Respiratory Distress - Cardiovascular Exam Cardiovascular Exam: REGULAR RHYTHM, RRR, +S1, +S2. absent: Bradycardia, Tachycardia, Irregular Rhythm, JVD, +S4 - GI/Abdominal Exam GI & Abdominal Exam: Normal Bowel Sounds, Soft, Unremarkable. absent: Diminished Bowel Sounds, Distended, Firm, Guarding, Hernia, Hyperactive Bowel Sounds, Hypoactive Bowel Sounds, Organomegaly, Rebound, Rigid, Tenderness - Extremities Exam Extremities exam: full ROM, normal inspection - Neurological Exam Neurological exam: Alert, Normal Gait, Oriented x3 - Psychiatric Exam Psychiatric exam: Normal Affect, Normal Mood - Skin Skin Exam: Dry, Intact, Normal Color, Warm Discharge Plan - Discharge Medications Prescriptions: Docusate [Colace] 100 mg PO DAILY #30 cap - Follow Up Plan Condition: FAIR Disposition: HOME/ ROUTINE Instructions: Type 2 Diabetes, High Blood Pressure in Adults, High Fiber Diet, Diverticulosis (DC), Gastrointestinal Bleeding (DC), Bloody Stools, Adult (DC) Additional Instructions: Please follow up with your doctor within 1 week of discharge. Please take Colace once per day to soften your stools, a prescription has been provided. Please avoid foods with excess seeds and popcorn for at least 1 week. Please resume all home medications. If you begin to feel dizzy/lightheaded or weak, stop whatever you are doing and sit down. Please return to the hospital if you experience new or concerning symptoms. Referrals: Chloé Larsen MD [Medical Doctor] - Pito Muhammad MD [Primary Care Provider] - <Alexei Rawls - Last Filed: 12/24/17 13:49> Provider - Provider Date of Admission: 12/23/17 07:40 Attending physician: Alexei Rawls MD Primary care physician: Pito Muhammad MD Time Spent in preparation of Discharge (in minutes): 35 Hospital Course - Lab Results Lab Results: Most Recent Lab Values WBC 5.3 10^3/ul (4.5-11.0) D 12/24/17 07:00 RBC 4.09 10^6/uL (3.5-6.1) 12/24/17 07:00 Hgb 11.5 g/dL (14.0-18.0) L 12/24/17 07:00 Hct 34.1 % (42.0-52.0) L 12/24/17 07:00 MCV 83.4 fl (80.0-105.0) 12/24/17 07:00 MCH 28.1 pg (25.0-35.0) 12/24/17 07:00 MCHC 33.7 g/dl (31.0-37.0) 12/24/17 07:00 RDW 14.0 % (11.5-14.5) 12/24/17 07:00 Plt Count 132 10^3/uL (120.0-450.0) 12/24/17 07:00 MPV 8.3 fl (7.0-11.0) 12/24/17 07:00 Gran % 63.1 % (50.0-68.0) 12/23/17 03:00 Lymph % (Auto) 26.1 % (22.0-35.0) 12/23/17 03:00 Latimer % (Auto) 9.5 % (1.0-6.0) H 12/23/17 03:00 Eos % (Auto) 1.1 % (1.5-5.0) L 12/23/17 03:00 Baso % (Auto) 0.2 % (0.0-3.0) 12/23/17 03:00 Gran # 3.33 (1.4-6.5) 12/23/17 03:00 Lymph # (Auto) 1.4 (1.2-3.4) 12/23/17 03:00 Latimer # (Auto) 0.5 (0.1-0.6) 12/23/17 03:00 Eos # (Auto) 0.1 (0.0-0.7) 12/23/17 03:00 Baso # (Auto) 0.01 K/mm3 (0.0-2.0) 12/23/17 03:00 PT 11.9 SECONDS (9.4-12.5) 12/24/17 07:00 INR 1.03 (0.93-1.08) 12/24/17 07:00 APTT 27.8 Seconds (25.1-36.5) 12/24/17 07:00 Sodium 140 mmol/L (132-148) 12/24/17 07:00 Potassium 4.0 mmol/L (3.6-5.0) 12/24/17 07:00 Chloride 107 mmol/L (98-107) 12/24/17 07:00 Carbon Dioxide 27 mmol/L (21-33) 12/24/17 07:00 Anion Gap 10 (10-20) 12/24/17 07:00 BUN 11 mg/dL (7-21) 12/24/17 07:00 Creatinine 0.8 mg/dl (0.8-1.5) 12/24/17 07:00 Est GFR ( Amer) > 60 12/24/17 07:00 Est GFR (Non-Af Amer) > 60 12/24/17 07:00 POC Glucose (mg/dL) 312 mg/dL (65-110) H 12/24/17 09:11 Random Glucose 166 mg/dL (70-110) H 12/24/17 07:00 Calcium 8.5 mg/dL (8.4-10.5) 12/24/17 07:00 Total Bilirubin 0.5 mg/dL (0.2-1.3) 12/24/17 07:00 AST 38 U/L (17-59) 12/24/17 07:00 ALT 47 U/L (7-56) 12/24/17 07:00 Alkaline Phosphatase 43 U/L (38-126) 12/24/17 07:00 Total Protein 6.0 g/dL (5.8-8.3) 12/24/17 07:00 Albumin 3.4 g/dL (3.0-4.8) 12/24/17 07:00 Globulin 2.6 gm/dL 12/24/17 07:00 Albumin/Globulin Ratio 1.3 (1.1-1.8) 12/24/17 07:00 Triglycerides 149 mg/dL (35-160) 12/22/17 21:02 Cholesterol 133 mg/dL (130-200) 12/22/17 21:02 LDL Cholesterol Direct 82 mg/dL (0-129) 12/22/17 21:02 HDL Cholesterol 38 mg/dL (29-60) 12/22/17 21:02 Blood Type B POSITIVE 12/22/17 21:11 Blood Type Confirm B POSITIVE 12/23/17 03:00 Antibody Screen Negative 12/22/17 21:11 BBK History Checked No verified bt 12/22/17 21:11 Attending/Attestation - Attestation I have personally seen and examined this patient.: Yes I have fully participated in the care of the patient.: Yes I have reviewed all pertinent clinical information, including history, physical exam and plan: Yes Notes (Text): 12/24/17 13:45 Medical record note made by the resident after discussion with my direction and input after the patient was personally seen and examined by me. I have reviewed the chart and agree that the record accurately reflects by personal performance of the history, physical exam, data review, and medical decision-making, in the course for the patient. I have also personally directed the plan of care. 67 yrs old male with PMH of Diverticulosis was admitted with lower GI bleeding.There is GI bleeding since admission to the hospital. Hemoglobin is stable since 24 hour.Patient is ambulatory, does not has any headache, dizziness, chest pain or palpitation.He is tolerating diet. He want to be discharged MELISSA.He has dane given education about sign and symptoms of blood lose.He has been advised to come back to ER if he would have any recurrent bleeding.He has advised to avoid constipation. He will follow up with GI and PCP. Management plan was discussed in detail with patient. Education was provided.
--- NOTE | 2017-12-26 18:42 | PQF ANEMIA ---
12/26/17 Dr. Kacie Rawls, Anemia is documented on this case with Hbg and Hct dropping throughout this admission,. Please clarify whether anemia is due to acute/chronic blood loss from bleeding diverticulosis. Thank you. Clarification of your documentation is requested to better reflect the severity of illness and intensity of treatment of your patient. Indicators present [] Anemia [] Drop in H&H from []___ to []___ [] Hypotension [] GI Bleed [] Transfusion(s) [] Acute bleed other sites [] Tachycardia [] Surgical Procedure Blood Loss (expected not a complication) Other:[] Location in the medical record that reflects the above clinical findings: [] Treatment Provided: [] PHYSICIAN'S RESPONSE 67 yrs old male with PMH of Diverticulosis was admitted with lower GI bleeding, drop in hemoglobin was due to lower GI bleeding, acute. Based on your medical judgment of the clinical indicators outlined above, are you treating this patient for a known or suspected: [] Acute blood loss anemia [] Chronic blood loss anemia [] Acute on Chronic blood loss anemia [] Anemia due to malignancy [] Anemia due to chemotherapy or radiation therapy [] Anemia of Chronic Disease, please specify: [] [] Other, please indicate type of anemia []____ [] If Unable to Determine, please check the box, sign and date. Present On Admission (POA) Indicator: [] Present at the time of admission [] Not present at the time of admission [] Clinically Undetermined In responding to this query, please exercise your independent professional judgment. The fact that a question is asked does not imply that any particular answer is desired or expected. Thank you for your clarification on this documentation. If you have any questions please call:[ ] * Thank you, [ ] presser first AUBREY
== END 2017-12-24 12:09 | disposition home or self-care (01) | DRG 378 ==
LOC: ED 20:19 → ERH 21:59 → 5RSO 23:20 → OBSVTOIN 12-23 07:40
PROVIDERS: ADMIT Internal Medicine; ATTEND Internal Medicine
DX: K57.31 Diverticulosis of large intestine without perforation or abscess with bleeding (principal); D62 Acute posthemorrhagic anemia; E11.9 Type 2 diabetes mellitus without complications; E78.5 Hyperlipidemia, unspecified; I10 Essential (primary) hypertension; Z79.899 Other long term (current) drug therapy; Z87.891 Personal history of nicotine dependence; R40.2412 Glasgow coma scale score 13-15, at arrival to emergency department